=== PATIENT | female | born 1975 | race Caucasian/White ===

== ENCOUNTER 2017-09-22 19:32 | Emergency (ER) | payer SELFPAY ==
[~2017-09-22] VITALS: Ht 167.6 cm; Wt 112.4 kg
[2017-09-22] MEDS ORDERED: CLEOCIN300 MG PO (21:54)
[2017-09-22] MEDS ORDERED: PERCOCET 5/31 TABLET PO (21:54)
[2017-09-22 22:41] VITALS: BP 148/87
== END 2017-09-22 22:41 | disposition home or self-care (01) ==
LOC: EME 19:32
DX: K04.7 Periapical abscess without sinus (principal); Z98.890 Other specified postprocedural states; Z88.8 Allergy status to other drugs, medicaments and biological substances
CPT/HCPCS: 99281; 99284; J3010; J7030